=== PATIENT | female | born 1955 | race Asian ===

== ENCOUNTER → 2023-11-23 | Day surgery (SDC) | payer MEDICARE, OTHER ==
[2023-10-30 12:44] LABS: BASOPHILS # (AUTO) 0.1 (0.0-0.1); BASOPHILS % 0.9 % (0.0-1.0); EOSINOPHILS # (AUTO) 0.2 (0.0-0.4); HEMATOCRIT 40.7 % (34.2-44.1); HEMOGLOBIN 12.5 g/dL (12.0-16.0); LYMPHOCYTES % 30.1 % (18.0-39.1); MEAN CORPUSCULAR HGB CONC 30.7 g/dL (31-35); MEAN CORPUSCULAR VOLUME 91.1 fL (81-99); MONOCYTES # (AUTO) 0.4 (0.2-0.8); MONOCYTES % 6.4 % (4.4-11.3); NEUTROPHILS % 59.2 % (38.7-80.0); PLATELET COUNT 342 x10e3/uL (140-360); RED BLOOD COUNT 4.47 x10e6/uL (3.6-5.1); RED CELL DISTRIBUTION WIDTH 13.2 % (11.7-14.4); WHITE BLOOD COUNT 6.71 x10e3/uL (4.8-10.8)
[2023-10-30 13:00] LABS: INR 0.92; PROTHROMBIN TIME 12.8 seconds (11.9-14.5)
[2023-10-30 13:07] LABS: ANION GAP 16.5 mmol/L (8-16); CREATININE, SERUM 1.74 mg/dL (0.57-1.11); POTASSIUM 4.5 mmol/L (3.5-5.1)
[~2023-11-23] MED LIST: ASPIR 8181 MG PO; CALTRATE 600 W1 EACH PO; CALTRATE PO; FLAXSEED OIL1000 M1 PO; GLIMEPIRIDE2 MG PO; GLUCOSAMIN-CHO1 EACH PO; JANUVIA100 MG PO; LACTATED RINGER'S 1,000 ML ONE; LIDOCAINE HCL 2% LOCAL INJ 5 ML SDV VIAL INJ ONE; LIPITOR20 MG PO; LOSARTAN POTAS100 MG PO; MELOXICAM7.5 MG PO; MULTI-VITAMIN1 EACH PO; OMEGA 3 1,0001 EACH PO; PROPOFOL IV EMULSION 10 MG/ML 20 ML VIAL ONE; PROPOFOL IV EMULSION 10 MG/ML 50 ML VIAL IV ONE; PROPOFOL IV EMULSION 50 ML IV ONE; VITAMIN B122500 MCG PO; VITAMIN C1000 MG PO; VITAMIN D325 MCG
[2023-11-23 09:57] VITALS: TEMP 97
[2023-11-23 10:20] VITALS: BP 112/60; PULSE 70; RESP 18; O2SAT 100
== END | disposition home or self-care (01) ==
LOC: OR 06:46
PROVIDERS: ATTEND Internal Medicine Gastroenterology
DX: Z12.11 Encounter for screening for malignant neoplasm of colon (principal); D12.5 Benign neoplasm of sigmoid colon; K64.8 Other hemorrhoids; E11.22 Type 2 diabetes mellitus with diabetic chronic kidney disease; I12.9 Hypertensive chronic kidney disease with stage 1 through stage 4 chronic kidney disease, or unspecified chronic kidney disease; N18.30 Chronic kidney disease, stage 3 unspecified; E78.5 Hyperlipidemia, unspecified; Z88.8 Allergy status to other drugs, medicaments and biological substances; Z01.810 Encounter for preprocedural cardiovascular examination; Z01.812 Encounter for preprocedural laboratory examination; Z79.84 Long term (current) use of oral hypoglycemic drugs; Z79.899 Other long term (current) drug therapy; Z80.0 Family history of malignant neoplasm of digestive organs
CPT/HCPCS: 36415; 45385; 80048; 85025; 85610; 85730; 88305; 93005; J2001; J2704 ×2; J7121; 45378

== ENCOUNTER 2024-02-09 13:19 | Inpatient (IN) | payer MEDICARE, OTHER ==
[2024-02-09] VITALS (7 sets, daily range): BP systolic 121–128; BP diastolic 58–71; PULSE 81–85; RESP 18–28; TEMP 97.8–98.8; O2SAT 100
[~2024-02-09] VITALS: Ht 154.9 cm; Wt 63.6 kg
[~2024-02-09 13:19] MED LIST changes: -LACTATED RINGER'S 1,000 ML ONE; -LIDOCAINE HCL 2% LOCAL INJ 5 ML SDV VIAL INJ ONE; -PROPOFOL IV EMULSION 10 MG/ML 20 ML VIAL ONE; -PROPOFOL IV EMULSION 10 MG/ML 50 ML VIAL IV ONE; -PROPOFOL IV EMULSION 50 ML IV ONE
[2024-02-09 15:45] LABS: BASOPHILS # (AUTO) 0.1 (0.0-0.1); BASOPHILS % 0.6 % (0.0-1.0); EOSINOPHILS # (AUTO) 4.3 (0.0-0.4); EOSINOPHILS % 21.8 % (0.0-6.0); HEMATOCRIT 45.6 % (34.2-44.1); HEMOGLOBIN 14.5 g/dL (12.0-16.0); LYMPHOCYTES # (AUTO) 4.5 (1.0-3.2); MEAN CORPUSCULAR HEMOGLOBIN 28.4 pg (28-32); MEAN CORPUSCULAR HGB CONC 31.8 g/dL (31-35); MEAN CORPUSCULAR VOLUME 89.4 fL (81-99); MONOCYTES % 5.1 % (4.4-11.3); NEUTROPHILS # (AUTO) 9.7 (2.1-6.9); NEUTROPHILS % 49.1 % (38.7-80.0); PLATELET COUNT 230 x10e3/uL (140-360); RED CELL DISTRIBUTION WIDTH 14.6 % (11.7-14.4); WHITE BLOOD COUNT 19.68 x10e3/uL (4.8-10.8)
[2024-02-09 16:04] LABS: ALANINE AMINOTRANSFERASE 1607 IU/L (0-55); ALBUMIN 3.4 g/dL (3.5-5.0); ALBUMIN/GLOBULIN RATIO 0.9 (0.8-2.0); ALKALINE PHOSPHATASE 101 IU/L (40-150); ANION GAP 20.4 mmol/L (8-16); BILIRUBIN,TOTAL 0.9 mg/dL (0.2-1.2); BLOOD UREA NITROGEN 70 mg/dL (7-26); BUN/CREATININE RATIO 31 (6-25); CALCIUM 9.4 mg/dL (8.4-10.2); CARBON DIOXIDE 16 mmol/L (22-29); CHLORIDE 107 mmol/L (98-107); CREATININE, SERUM 2.26 mg/dL (0.57-1.11); EST GLOMERULAR FILTRATION RATE 23 ML/MIN (>=60); GLUCOSE 263 mg/dL (74-118); POTASSIUM 4.4 mmol/L (3.5-5.1); SODIUM 139 mmol/L (136-145)
[2024-02-09 16:11] LABS: TROPONIN I < 0.001 ng/mL (0-0.300)
[2024-02-09 16:59] LABS: BAND NEUTROPHILS % (MANUAL) 17 %; BASOPHILS % (MANUAL) 1 % (0-1.5); EOSINOPHILS % (MANUAL) 17 % (0-7); LYMPHOCYTES % (MANUAL) 18 % (19-48); MONOCYTES % (MANUAL) 1 % (3.4-9.0); NEUTROPHILS % (MANUAL) 46 % (40-74); PLATELET ESTIMATE ADEQUATE; PLATELET MORPHOLOGY COMMENT NORMAL; RBC MORPHOLOGY COMMENT NORMAL
[2024-02-09] MEDS ORDERED: DIPHENHYDRAMINE HCL INJ 50 MG/ML VIAL ONE (17:40)
[2024-02-09] MEDS ORDERED: FAMOTIDINE 20 MG/2 ML VIAL IV ONE (17:41)
[2024-02-09] MEDS ORDERED: SODIUM CHLORIDE 0.9% 1000ML 1,000 ML ONE (17:41)
[2024-02-09] MEDS ORDERED: METHYLPREDNISOLONE SOD SUCC 125 MG/2ML VIAL ONE (17:41)
[2024-02-09] MEDS: METHYLPREDNISOLONE SOD SUCC 125 MG/2ML VIAL IV STA (17:56)
[2024-02-09] MEDS: SODIUM CHLORIDE 0.9% 1000ML 1,000 ML IV STA (17:56)
[2024-02-09] MEDS: FAMOTIDINE 20 MG/2 ML VIAL IV STA (17:57)
[2024-02-09] MEDS: DIPHENHYDRAMINE HCL INJ 50 MG/ML VIAL IV ONE (17:57)
[2024-02-09 18:29] LABS: CLARITY,URINE HAZY (CLEAR); COLOR,URINE YELLOW (YELLOW)
[2024-02-09 18:30] LABS: BILIRUBIN,URINE NEGATIVE (NEGATIVE); GLUCOSE, URINE 500 (NEGATIVE); KETONES,URINE NEGATIVE (NEGATIVE); LEUKOCYTE ESTERASE ,URINE SMALL (NEGATIVE); NITRITE,URINE NEGATIVE (NEGATIVE); PH,URINE 6 (5 - 7); PROTEIN,URINE DIPSTICK TRACE (NEGATIVE); URINE UROBILINOGEN 0.2 mg/dL (0.2 - 1)
[2024-02-09 18:38] LABS: BACTERIA,URINE MODERATE /HPF; EPITHELIAL CELLS,URINE RARE /LPF; RBC,URINE 21-50 /HPF (0-5); WBC,URINE (MAN) >50 /HPF (0-5)
[2024-02-09] MEDS ORDERED: ACETAMINOPHEN 325 MG TAB ONE (18:55)
[2024-02-09] MEDS: SODIUM CHLORIDE 0.9% 500ML 500 ML IV ONE ×2 (18:59→19:36)
[2024-02-09] MEDS: ACETAMINOPHEN 325 MG TAB PO ONE (18:59)
[2024-02-09] MEDS: Vancomycin IV 1 GM in SODIUM CHLORIDE 0.9% 250ML 250 ML IV ONE (19:20)
[2024-02-09] MEDS ORDERED: SODIUM CHLORIDE 0.9% 500ML 500 ML ONE (19:32)
[2024-02-09] MEDS ORDERED: ONDANSETRON HCL INJ 2MG/ML 2ML 2 MG/ML VIAL IV PRN (19:45)
[2024-02-09] MEDS ORDERED: DEXTROSE 50% SYRINGE 50 ML IV PRN (20:15)
[2024-02-09] MEDS: INSULIN REGULAR, HUMAN 100 UNIT/1 ML SQ SCH (21:00)
[2024-02-09] MEDS: SODIUM CHLORIDE 0.9% 1000ML 1,000 ML IV ONE (21:30)
[2024-02-09] MEDS: Doxycycline IV 100 MG in SODIUM CHLORIDE 0.9% 100 ML IV SCH (21:31)
[2024-02-09] MEDS ORDERED: ALLOPURINOL 100 MG TAB PO SCH (21:45)
[2024-02-09] MEDS: ATORVASTATIN 40 MG TAB PO SCH (22:42)
[2024-02-09] MEDS: ALLOPURINOL 100 MG TAB PO ONE (22:54)
[2024-02-09] MEDS ORDERED: ALLOPURINOL100 MG PO (23:08)
[2024-02-09] MEDS ORDERED: JARDIANCE10 MG PO (23:08)
[2024-02-10] VITALS (19 sets, daily range): BP systolic 109–132; BP diastolic 54–90; PULSE 57–135; RESP 14–25; TEMP 97.5–97.9; O2SAT 96–100
[2024-02-10] MEDS: MULTIVITAMINS/MINERALS TAB PO SCH (08:24)
[2024-02-10] MEDS ORDERED: ATORVASTATIN 40 MG TAB PO SCH (09:00)
[2024-02-10 09:11] LABS: BASOPHILS # (AUTO) 0.1 (0.0-0.1); BASOPHILS % 0.5 % (0.0-1.0); EOSINOPHILS # (AUTO) 0.3 (0.0-0.4); HEMATOCRIT 35.5 % (34.2-44.1); LYMPHOCYTES # (AUTO) 3.5 (1.0-3.2); LYMPHOCYTES % 33.9 % (18.0-39.1); MEAN CORPUSCULAR HEMOGLOBIN 28.2 pg (28-32); MONOCYTES # (AUTO) 0.3 (0.2-0.8); MONOCYTES % 3.1 % (4.4-11.3); PLATELET COUNT 128 x10e3/uL (140-360); RED CELL DISTRIBUTION WIDTH 14.7 % (11.7-14.4); WHITE BLOOD COUNT 10.19 x10e3/uL (4.8-10.8)
[2024-02-10 09:26] LABS: ALBUMIN 2.5 g/dL (3.5-5.0); ALBUMIN/GLOBULIN RATIO 0.9 (0.8-2.0); ANION GAP 17.6 mmol/L (8-16); BILIRUBIN,TOTAL 0.6 mg/dL (0.2-1.2); CALCIUM 7.4 mg/dL (8.4-10.2); CREATININE, SERUM 1.49 mg/dL (0.57-1.11); POTASSIUM 4.6 mmol/L (3.5-5.1); TOTAL PROTEIN 5.2 g/dL (6.5-8.1)
[2024-02-10 09:42] LABS: CREATINE KINASE 39 IU/L (29-168)
[2024-02-10 09:48] LABS: TROPONIN I < 0.001 ng/mL (0-0.300)
[2024-02-10] MEDS: SODIUM BICARBONATE 8.4% IV ONE (10:32)
[2024-02-10] MEDS: STERILE WATER IV ONE (10:32)
[2024-02-10 16:16] LABS: HIV- 1 P24 AG SCREEN NON-REACTIVE (NONREACTIVE)
[2024-02-10 16:17] LABS: HIV 1&2 AB SCREEN NON-REACTIVE (NONREACTIVE)
[2024-02-11] VITALS (10 sets, daily range): BP systolic 104–143; BP diastolic 58–91; PULSE 60–110; RESP 16–20; TEMP 97.5–98.5; O2SAT 98–100
[2024-02-11 06:15] LABS: CREATINE KINASE 50 IU/L (29-168)
[2024-02-11 06:22] LABS: TROPONIN I < 0.001 ng/mL (0-0.300)
[2024-02-11 10:09] LABS: ALBUMIN 2.6 g/dL (3.5-5.0); ANION GAP 16.5 mmol/L (8-16); BILIRUBIN,TOTAL 0.6 mg/dL (0.2-1.2); CALCIUM 8.6 mg/dL (8.4-10.2); CREATININE, SERUM 1.4 mg/dL (0.57-1.11); POTASSIUM 4.5 mmol/L (3.5-5.1); TOTAL PROTEIN 5.2 g/dL (6.5-8.1)
[2024-02-11] MEDS: DIPHENHYDRAMINE HCL 25 MG CAP PO PRN (10:41)
[2024-02-11] MEDS: HYDROCORTISONE 1% CREAM 30 GM TUBE TOP PRN (11:52)
[2024-02-11] MEDS ORDERED: CLINDAMYCIN PHOS 900MG/ 50ML 50 ML IV SCH (16:00)
[2024-02-11] MEDS: LACTATED RINGER'S 1,000 ML INJ ONE (21:05)
[2024-02-11] MEDS: METHYLPREDNISOLONE SOD SUCC 40 MG/ML VIAL 1ML IV SCH (21:05)
[2024-02-11] MEDS: CLINDAMYCIN PHOS 900MG/ 50ML 50 ML IV SCH (21:07)
[2024-02-12] VITALS (9 sets, daily range): BP systolic 109–133; BP diastolic 53–94; PULSE 61–98; RESP 16–20; TEMP 97.8–98.4; O2SAT 99–100
[2024-02-12 06:04] LABS: ANION GAP 16.4 mmol/L (8-16); CALCIUM 8.7 mg/dL (8.4-10.2); CREATININE, SERUM 1.35 mg/dL (0.57-1.11)
[2024-02-12 06:17] LABS: POTASSIUM 5.4 mmol/L (3.5-5.1)
[2024-02-12] MEDS ORDERED: ONDANSETRON HCL 4 MG ORAL DISINTEGRATING TAB PO PRN (07:30)
[2024-02-12] MEDS: SOD POLYSTYRENE SULFONATE SUSP 15 GM/60 ML BTL PO ONE (14:13)
[2024-02-12] MEDS: FUROSEMIDE INJ 10 MG/ML 2 ML VIAL IV ONE (14:13)
[2024-02-12] MEDS ORDERED: HYDROCORTISO453.6 GM TOP (18:13)
[2024-02-12] MEDS ORDERED: ONDANSETRON ODT4 MG PO (18:13)
[2024-02-12] MEDS ORDERED: MEDROL4 M2 PO (18:13)
[2024-02-12] MEDS ORDERED: DIPHENHYDRAMINE25 M2 PO (18:13)
[2024-02-13 05:16] LABS: ABG HCO3 18 mmol/L (22-26); ABG PCO2 27 mmHg (35-45); ABG PH 7.43 (7.35-7.45); ABG PO2 116 mmHg (80-105); ABG TCO2 19
[2024-02-14 09:14] LABS: MYCOPLASMA PNEUMO IGG 265 U/mL (0-99); MYCOPLASMA PNEUMO IGM <770 U/mL (0-769)
[2024-02-19 11:59] LABS: TOXOPLASMA IGM ANTIBODY <3.0
== END 2024-02-12 20:00 | disposition home or self-care (01) | DRG 815 ==
LOC: ER 15:13 → ERHOLD 19:49 → ICU 22:09 → MED/SURG2 02-10 20:20
PROVIDERS: ADMIT Internal Medicine; ATTEND Internal Medicine
PROC: 4A033R1 Measurement of Arterial Saturation, Peripheral, Percutaneous Approach (ICD-10-PCS; principal; 2024-02-12)
PROC: 4A033R1 Measurement of Arterial Saturation, Peripheral, Percutaneous Approach (ICD-10-PCS; 2024-02-12)
DX: D72.12 Drug rash with eosinophilia and systemic symptoms syndrome (principal); E87.20 Acidosis, unspecified; N17.9 Acute kidney failure, unspecified; T50.4X5A Adverse effect of drugs affecting uric acid metabolism, initial encounter; T38.3X5A Adverse effect of insulin and oral hypoglycemic [antidiabetic] drugs, initial encounter; L08.89 Other specified local infections of the skin and subcutaneous tissue; B95.5 Unspecified streptococcus as the cause of diseases classified elsewhere; I12.9 Hypertensive chronic kidney disease with stage 1 through stage 4 chronic kidney disease, or unspecified chronic kidney disease; E11.22 Type 2 diabetes mellitus with diabetic chronic kidney disease; N18.30 Chronic kidney disease, stage 3 unspecified; E11.69 Type 2 diabetes mellitus with other specified complication; Z79.84 Long term (current) use of oral hypoglycemic drugs; E87.5 Hyperkalemia; R74.8 Abnormal levels of other serum enzymes; E78.5 Hyperlipidemia, unspecified; E66.9 Obesity, unspecified; Z68.26 Body mass index [BMI] 26.0-26.9, adult; Z79.899 Other long term (current) drug therapy; Y92.009 Unspecified place in unspecified non-institutional (private) residence as the place of occurrence of the external cause
CPT/HCPCS: 36415; 71045; 80048; 80053; 81001; 82550; 82805; 82948; 83518; 83605; 83735; 84484; 85025; 86308; 86631; 86738; 86777; 86778; 87040; 87070; 87086; 87186; 87390; 87449; 93005; 94799; 99284; G0433; G0435; J0696; J1200; J1940; J2919; J7030; J7040; J7050; J7799